=== PATIENT | female | born 1985 | race Caucasian/White ===

== ENCOUNTER 2016-11-08 00:26 | Emergency (ER) | payer OTHER ==
[~2016-11-08] VITALS: Ht 167.6 cm; Wt 69.6 kg
[~2016-11-08 00:26] MED LIST: Actigall PO; Benadryl PO; Fioricet,Esgic,Repan PO; Roxicet,Percocet 5/3 PO; ZOFRAN4 MG PO
[2016-11-08 01:31] LABS: HEMATOCRIT 40.6 % (36.0-46.0); MCH 27.2 PG (29.0-34.0); MCHC 31.8 G/DL (30.0-36.0); MCV 85.5 FL (83-99); MEAN PLAT.VOLUME 9.2 uM^3 (9.5-12.4); PLATELET COUNT 276 K/uL (156-360); RBC DIS.WIDTH-CV 12.3 % (11.8-14.6); RBC DIS.WIDTH-SD 38.5 % (39-53); RED BLOOD COUNT 4.75 M/uL (3.80-5.20)
[2016-11-08 01:42] LABS: CHLORIDE 102 mEq/L (99-109); POTASSIUM 3.3 mEq/L (3.7-5.4); SODIUM 137 mEq/L (136-147)
[2016-11-08 01:44] LABS: GLUCOSE 71 mg/dL (70-99)
[2016-11-08 01:45] LABS: ANION GAP 9 MEQ/L (2-14)
[2016-11-08 01:48] LABS: GFR ESTIMATE (CALCULATED) > 59 mL/min/
[2016-11-08 01:49] LABS: UREA NITROGEN (BUN) 15 mg/dL (9-23)
[2016-11-08 01:53] LABS: TROP-I INTERPRETATION NEGATIVE; TROPONIN-I < 0.01 ng/mL (0.0-0.30)
[2016-11-08 01:56] LABS: QUANTITATIVE HCG < 4.0 MIU/ML
[2016-11-08] MEDS ORDERED: NAPROSYN500 MG PO (02:32)
[2016-11-08] MEDS ORDERED: FLEXERIL10 MG PO (02:32)
[2016-11-08 02:45] VITALS: BP 117/77
== END 2016-11-08 02:46 | disposition home or self-care (01) ==
LOC: EME 00:26
PROVIDERS: Emergency Medicine
DX: S29.011A Strain of muscle and tendon of front wall of thorax, initial encounter (principal); X58.XXXA Exposure to other specified factors, initial encounter; Z87.891 Personal history of nicotine dependence
CPT/HCPCS: 71020; 80048; 84484; 84702; 85027; 85379; 93005; 99281; 99284

== ENCOUNTER 2017-07-08 06:37 | Day surgery (SDC) | payer OTHER ==
[~2017-07-08] VITALS: Ht 167.6 cm; Wt 69.0 kg
[~2017-07-08 06:37] MED LIST changes: +FLEXERIL10 MG PO; +IMITREX100 MG PO; +NAPROSYN500 MG PO; +SINGULAIR10 MG PO
[2017-07-08 07:40] VITALS: BP 122/81
[2017-07-08] MEDS ORDERED: TOPAMAX100 MG PO (07:49)
[2017-07-08] MEDS ORDERED: HYDROCODON-ACE1 EAC7 PO (09:05)
[2017-07-08] MEDS ORDERED: IBUPROFEN800 MG PO (09:05)
[2017-07-08 10:20] VITALS: BP 133/89
[2017-07-08 10:59] VITALS: BP 123/80
== END 2017-07-08 11:05 | disposition home or self-care (01) ==
LOC: SDC 06:37
PROC: 0UDB8ZZ Extraction of Endometrium, Via Natural or Artificial Opening Endoscopic (ICD-10-PCS; principal; 2017-07-08)
DX: N92.1 Excessive and frequent menstruation with irregular cycle (principal); J45.909 Unspecified asthma, uncomplicated; F41.9 Anxiety disorder, unspecified; Z87.891 Personal history of nicotine dependence
CPT/HCPCS: 88305; J0131; J0330; J0690; J1100; J1170; J1885; J2250; J2405; J3010

== ENCOUNTER 2017-08-03 07:37 | Emergency (ER) | payer OTHER ==
[~2017-08-03] VITALS: Ht 167.6 cm; Wt 71.9 kg
[~2017-08-03 07:37] MED LIST changes: +HYDROCODON-ACE1 EAC7 PO; +IBUPROFEN800 MG PO; +TOPAMAX100 MG PO
[2017-08-03 08:39] LABS: ADD MIUA? YES; BILIRUBIN NEGATIVE; BLOOD SMALL; COLOR YELLOW ((YELLOW)); GLUCOSE (STRIP) NEGATIVE; KETONES NEGATIVE; LEUKOCYTES NEGATIVE; NITRITE NEGATIVE; PROTEIN (STRIP) NEGATIVE; SPECIFIC GRAVITY 1.017 (1.000-1.030); UROBILINOGEN 0.2 MG/DL (0.2-1.0)
[2017-08-03 08:41] LABS: BACTERIA NONE SEEN /HPF; EPITHELIAL CELLS 2+ /HPF; MUCUS NONE SEEN /LPF; RED BLOOD CELLS 0-5 /HPF (0-5); WHITE BLOOD CELLS 0-5 /HPF (0-5)
[2017-08-03 09:03] LABS: EOSINOPHIL (%) 2.2 % (0-5); EOSINOPHIL COUNT 0.1 K/uL (0-0.3); HEMATOCRIT 40.4 % (36.0-46.0); IMMATURE GRANULOCYTE (%) 0.2 % (0.0-0.7); INSTRUMENT ABS NEUTROPHIL CT 3.8 K/uL; LYMPHOCYTE COUNT 1.9 K/uL (1.0-2.8); MCH 29.2 PG (29.0-34.0); MCHC 32.9 G/DL (30.0-36.0); MCV 88.8 FL (83-99); MEAN PLAT.VOLUME 9.2 uM^3 (9.5-12.4); MONOCYTE (%) 6.7 % (3-12); MONOCYTE COUNT 0.4 K/uL (0-0.8); NEUTROPHIL (%) 60.8 % (45-76); NEUTROPHIL COUNT 3.8 K/uL (1.8-6.4); PLATELET COUNT 254 K/uL (156-360); RBC DIS.WIDTH-CV 12.2 % (11.8-14.6); RBC DIS.WIDTH-SD 39.6 % (39-53); RED BLOOD COUNT 4.55 M/uL (3.80-5.20); WHITE BLOOD COUNT 6.3 K/uL (4.1-10.2)
[2017-08-03 09:13] LABS: CHLORIDE 105 mEq/L (99-109); POTASSIUM 4.3 mEq/L (3.7-5.4); SODIUM 139 mEq/L (136-147)
[2017-08-03 09:15] LABS: GLUCOSE 95 mg/dL (70-99)
[2017-08-03 09:16] LABS: ANION GAP 6 MEQ/L (2-14)
[2017-08-03 09:19] LABS: GFR ESTIMATE (CALCULATED) > 59 mL/min/; UREA NITROGEN (BUN) 12 mg/dL (9-23)
[2017-08-03] MEDS ORDERED: TORADOL10 MG PO (09:54)
[2017-08-03] MEDS ORDERED: FLEXERIL10 MG PO (09:54)
[2017-08-03 10:35] VITALS: BP 104/74
== END 2017-08-03 10:36 | disposition home or self-care (01) ==
LOC: EME 07:37
PROVIDERS: Emergency Medicine
DX: R10.9 Unspecified abdominal pain (principal); G89.29 Other chronic pain; M54.9 Dorsalgia, unspecified; Z87.442 Personal history of urinary calculi; Z87.891 Personal history of nicotine dependence
CPT/HCPCS: 74176; 80048; 81003; 85025; 99281; 99284; J1885